=== PATIENT | female | born 1980 | race Caucasian/White ===

== ENCOUNTER 2025-04-22 21:57 | Emergency (ER) | payer BC, OTHER ==
[2025-04-22] MEDS: Ketorolac 30 MG/ML SDV IM ONE (22:45)
[2025-04-22] MEDS: hydrOXYzine HCl 50 MG/ML SDV IM ONE (22:46)
== END 2025-04-23 00:10 | disposition home or self-care (01) ==
LOC: FB.ED 21:57
DX: G43.109 Migraine with aura, not intractable, without status migrainosus (principal); Z88.8 Allergy status to other drugs, medicaments and biological substances
CPT/HCPCS: 96372; 99283; J1885; J3410